=== PATIENT | female | born 1975 | race Caucasian/White ===

== ENCOUNTER 2016-12-18 11:43 | Emergency (ER) | payer BC, OTHER ==
--- NOTE | ~2016-12-18 | CT4 ---
[facility] A Service of [facility] RADIOLOGY TEXT RESULTS PATIENT: PAULINO BAHENA LOCATION: SED : 79 UNIT #: [id number] AGE: [address]: KALA YO SEX: F ORDER DR: [id number] [place] [id number] E MR#: [id number] Acc #: [id number] NAME: PAULINO BAHENA : 1975 SEX: F STUDY DATE/TIME: 12/18/2016 13:08 UNIT: SED ROOM: STUDY DESCRIPTION: CT Abd and Pelv Wo Cont Attending Physician: Kala Yo A.P.R.N. Ordering Physician: Kala Yo A.P.R.N. Primary Care Physician: No Primary Care Physician MEDICAL IMAGING REPORT This report is preliminary unless electronic signature is present. EXAM Abdomen and pelvis CT no contrast 12/18/16. INDICATIONS 41-year-old female with upper posterior rib pain worse with movement and deep breath for 3 days. No known injury. Flank pain on the right 3 days; noncontrast abdomen and pelvis CT was performed. This CT exam was performed with one or more of the following radiation dose reduction techniques: automatic exposure control, adjustment of mA and/or kV according to patient size, and iterative reconstruction. COMPARISON Compared with 06/16/2014. FINDINGS CT abdomen. Exam degraded by noncontrast technique. No effusion or pericardial effusion. Small hiatal hernia. Aorta unremarkable. Spleen, adrenal glands and pancreas unremarkable. Gallbladder surgically absent. Liver unremarkable. Kidneys demonstrate no radiopaque stone or hydronephrosis or inflammatory change. CT pelvis. Bladder unremarkable. Uterus surgically absent. No drainable fluid collection or free fluid in the pelvis. Bowel demonstrates no obstruction or focal inflammatory change. Appendix normal. Dominant follicle in the left ovary appears physiologic. Inguinal canals are unremarkable. There is no suspicious bone lesion. The patient is status post lumbar [facility]S. [facility] A Service of [facility] RADIOLOGY TEXT RESULTS PATIENT: PAULINO BAHENA LOCATION: SED : 77 UNIT #: [id number] AGE: [address]: KALA YO SEX: F ORDER DR: surgery. No distinct rib fracture. IMPRESSION 1. Negative noncontrast abdomen and pelvis CT. No bowel obstruction, drainable fluid collection or focal area of inflammatory change and the appendix is normal. 2. No radiopaque stone or hydronephrosis of either kidney. 3. Gallbladder and uterus are surgically absent. 4. Small hiatal hernia. Dictated by... Connor Hawkins M.D. THIS IS AN ELECTRONICALLY VERIFIED REPORT Connor Hawkins M.D. at 12/19/2016 1:51 PM ZAINAB/joshua TD: 12/19/2016 08:35 JOB #: [id number] MEDICAL IMAGING REPORT Page 1 of 1
--- NOTE | ~2016-12-18 | EKG ---
PATIENT: PAULINO BAHENA UNIT #: [id number] Ventricular Rate: 83 BPM Atrial Rate: 83 BPM P-R Interval: 152 ms QRS Duration: 80 ms Q-T Interval: 390 ms QTC Calculation(Bezet): 458 ms P [place]: 23 degrees Calculated R [place]: 10 degrees Calculated T [place]: 10 degrees Diagnosis Line: Normal sinus rhythm Diagnosis Line: Normal ECG Diagnosis Line: When compared with ECG of 06-OCT-2014 20:46, Diagnosis Line: T wave amplitude has decreased in Anterior leads Diagnosis Line: Confirmed by KALA MALHOTRA MD ([id number]) on Diagnosis Line: 12/21/2016 11:18:25 AM INTERPRETING MD: ROSCOE BOWEN
--- NOTE | ~2016-12-18 | CR63 ---
[facility] A Service of [facility] RADIOLOGY TEXT RESULTS PATIENT: PAULINO BAHENA LOCATION: SED : [birth year] UNIT #: [id number] AGE: [address]: KALA YO SEX: F ORDER DR: [id number] [place] [id number] E MR#: [id number] Acc #: [id number] NAME: PAULINO BAHENA : 1975 SEX: F STUDY DATE/TIME: 12/18/2016 15:07 UNIT: SED ROOM: STUDY DESCRIPTION: CR Chest 2 View Attending Physician: Kala Yo A.P.R.N. Ordering Physician: Kala Yo A.P.R.N. Primary Care Physician: Primary Care Physician No MEDICAL IMAGING REPORT This report is preliminary unless electronic signature is present. EXAM Two-view chest 12/18/2016 INDICATIONS Chest pain in a 41-year-old female. Upper posterior rib pain on the right worse with movement and deep breaths. Symptoms 3 days. No known injury. Flank pain on the right the right 3 days. TECHNIQUE Two views of the chest were performed. COMPARISON 02/23/2014 FINDINGS Mild upper thoracic rightward curve likely positional. Cardiac silhouette is within normal limits. The vascularity is normal. Lung volumes are low. There is no effusion, dense consolidation or pneumothorax. Tiny calcified granulomas are present. IMPRESSION 1. Negative chest. Dictated by... Connor Hawkins M.D. THIS IS AN ELECTRONICALLY VERIFIED REPORT Connor Hawkins M.D. at 12/19/2016 1:52 PM AZINAB/brianne TD: 12/19/2016 09:43 [facility] A Service [facility] RADIOLOGY TEXT RESULTS PATIENT: PAULINO BAHENA LOCATION: SED : [birth year] UNIT #: [id number] AGE: [address]: KALA YO SEX: F ORDER DR: LALITA #: [id number] MEDICAL IMAGING REPORT Page 1 of 1
[~2016-12-18 11:43] MED LIST: BACTRIM DS TABL1 TAB PO; DOXYCYCLINE PO; FLEXERIL10 MG PO; HYDROCODON-ACE1 EAC5 PO; KEFLEX PO; LIBRAX CAPSULE1 CAP PO; LIDOCAINE VISCOU1 ML TOP; LINZESS145 MCG PO; METROLOTION TOP; NORCO 5/325 TAB1 TAB PO; PAXIL PO; TYLENOL #3 PO; VICODIN 5/500 T1 TAB PO; ZITHROMAX PO; [UNRECOGNIZED DRUG - OTHER] TOP
[2016-12-18] MEDS ORDERED: HYDROCODON-ACE1 EAC5 PO (11:51)
[2016-12-18 12:37] LABS: BASOPHIL# 0.1 X10e3 (0-0.3); BASOPHIL% 0.9 % (0-2.5); EOSINOPHIL# 0.1 X10e3 (0-0.7); EOSINOPHIL% 1.2 % (0.0-7.0); HEMATOCRIT 39.2 % (35.0-45.0); HEMOGLOBIN 13.5 gm/dL (12.0-16.0); LYMPHOCYTE# 1.7 X10e3 (1.0-3.5); MEAN CELL VOLUME 89.7 FL (83-96); MEAN CORPUSCULAR HEMOGLOBIN 30.8 PG (28-34); MEAN CORPUSCULAR HGB CONC 34.4 g/dL (30-36); MEAN PLATELET VOLUME 7.4 FL (6.5-11.5); MONOCYTE# 0.4 X10e3 (0-1.0); MONOCYTE% 5.3 % (3.0-12.0); NEUTROPHIL# 5.3 X10e3 (1.5-7.1); NEUTROPHIL% 70.6 % (40-75); PLATELET COUNT 330 X10e3 (140-420); RED BLOOD COUNT 4.37 X10e (3.90-5.30); URINE SOURCE CLEAN CATCH; WHITE BLOOD COUNT 7.6 X10e3 (4.0-10.5)
[2016-12-18 12:39] LABS: DIFF IND NO
[2016-12-18 12:40] LABS: URINE APPEARANCE CLEAR; URINE BILIRUBIN NEG (NEG); URINE BLOOD NEG (NEG); URINE COLOR YELLOW; URINE GLUCOSE NEG (NORM); URINE KETONE NEG (NEG); URINE LEUKOCYTE ESTERASE NEG (NEG); URINE NITRATE NEG (NEG); URINE PH 7.5 (5-8); URINE PROTEIN NEG (NEG); URINE SPECIFIC GRAVITY 1.025 (1.003-1.035); URINE UROBILINOGEN 0.2 MG/DL (NORM)
[2016-12-18 12:47] LABS: MICRO INDICATED? NO
[2016-12-18 13:07] LABS: ALBUMIN SERUM 4.3 g/dL (3.5-5.0); BILIRUBIN,TOTAL 0.5 mg/dL (0.2-2.0); BUN/CREATININE RATIO 13.33; CALCIUM SERUM 9.2 mg/dL (8.4-10.2); CREATININE SERUM 0.6 mg/dL (0.6-1.4); GLOM FILT RATE Estimated 114.8 mL/min (>60); PROTEIN TOTAL SERUM 7.4 g/dL (6.0-8.3)
[2016-12-19 17:02] LABS: POC - CKMB <1.0 ng/mL (0.0-7.9); POC - MYOGLOBIN 32.7 ng/mL (0.0-169.0)
[2016-12-19 17:03] LABS: POC - TROPONIN <0.05 ng/mL (<=0.05)
== END 2016-12-18 16:10 | disposition home or self-care (01) ==
LOC: SED 11:43
PROVIDERS: Nurse Practitioner
DX: R10.9 Unspecified abdominal pain (principal); K21.9 Gastro-esophageal reflux disease without esophagitis; Z79.891 Long term (current) use of opiate analgesic; Z88.8 Allergy status to other drugs, medicaments and biological substances; Z88.6 Allergy status to analgesic agent
CPT/HCPCS: 36415; 71020; 74176; 80053; 81003; 82553; 83690; 83874; 83880; 84484; 85025; 93005; 96361; 96374; 96375; 99284; J2270; J2405; J2550